=== PATIENT | female | born 1945 | race Caucasian/White ===

== ENCOUNTER 2020-04-27 05:41 | Outpatient (CLI) | payer MEDICARE, OTHER ==
--- NOTE | 2020-04-27 14:45 | RAD ---
EXAM: Two views chest PROVIDED CLINICAL HISTORY: Preoperative evaluation COMPARISON: None FINDINGS: Cardiac silhouette is the upper limits normal in size. Pulmonary vasculature is within normal limits. The lungs are clear. There is an area of increased density seen overlying the anterior aspects of the endplates of midthoracic vertebral bodies only seen on the lateral view which is thought to most likely represent endplate degenerative changes as opposed to a parenchymal abnormality. There are scattered osteophytes in the lumbar spine. IMPRESSION: No acute cardiopulmonary process.
[2020-04-27 16:09] LABS: #Eosinphils 0.1 thou/uL (0.0-0.7); #Lymphocytes 1.1 thou/uL (1.20-3.40); #Monocytes 0.7 thou/uL (0.11-0.59); #Neutrophils 9.1 thou/uL (1.40-6.50); %Basophils 0.4 % (0.0-1.0); %Eosinophils 1.1 % (0.0-10.0); %Lymphocytes 9.8 % (21.0-51.0); %Monocytes 6.4 % (0.0-10.0); %Neutrophils 82.4 % (42.0-75.0); Hemoglobin 13.8 g/dL (12.0-16.0); Mean Corpuscular HGB CONC 32.9 g/dL (32.0-36.0); Mean Corpuscular Hemoglobin 30.2 pg (27.0-31.0); Mean Corpuscular Volume 91.6 fL (78.0-98.0); Mean Platelet Volume 7.6 fL (7.4-10.4); Platelet Count 269 thou/uL (130-400); RBC Distribution Width 13.2 % (11.5-14.5); Red Blood Cell (RBC) Count 4.57 mill/uL (4.20-5.40); White Blood Cell (WBC) Count 11.1 thou/uL (4.8-10.8)
[2020-04-27 16:56] LABS: Anion Gap 15 mmol/L (10-20); BUN (Urea Nitrogen) 19 mg/dL (9.8-20.1); Calc. Creatinine Clearance 0 mL/min (70-130); Calcium 8.9 mg/dL (7.8-10.44); Carbon Dioxide 24 mmol/L (23-31); Chloride 102 mmol/L (98-107); Estimated GFR-MDRD 70; Glucose 119 mg/dL (83-110); Potassium 4.1 mmol/L (3.5-5.1); Sodium 137 mmol/L (136-145)
[2020-04-28 13:49] LABS: SARS-CoV-2 MS2 Positive; SARS-CoV-2 N Gene Negative; SARS-CoV-2 S Gene Negative; SARS-CoV-2 by NAA Not Detected (NotDetected); SARS-CoV-2 orf1ab Negative
--- NOTE | 2020-04-28 16:45 | EKG ---
Test Reason : PREOP Blood Pressure : / mmHG Vent. Rate : 079 BPM Atrial Rate : 079 BPM P-R Int : 188 ms QRS Dur : 142 ms QT Int : 408 ms P-R-T Axes : 063 006 101 degrees QTc Int : 467 ms Normal sinus rhythm Left bundle branch block Abnormal ECG No previous ECGs available Confirmed by DR. Mati RAMIREZ ([id number]) on 04/28/2020 4:44:47 PM Referred By: Rony GANN Confirmed By:DR. Mati RAMIREZ
== END 2020-04-27 05:42 | disposition home or self-care (01) ==
LOC: LABBT 05:41 → SCSRAD 05:42
PROVIDERS: ATTEND Specialist
DX: Z01.818 Encounter for other preprocedural examination (principal); Z20.828 Contact with and (suspected) exposure to other viral communicable diseases; K44.9 Diaphragmatic hernia without obstruction or gangrene; K21.9 Gastro-esophageal reflux disease without esophagitis
CPT/HCPCS: 71046; 80048; 85025; 87635; 93005; 93010; U0003

== ENCOUNTER 2020-05-02 05:42 | Day surgery (SDC) | payer MEDICARE ==
[2020-04-26 14:07] VITALS: BMI 32.9
[2020-05-02] MEDS ORDERED: Ketorolac Tromethamine 30 MG/ML VIAL ONE (06:03)
[2020-05-02] MEDS ORDERED: Acetaminophen 500 MG TAB ONE (06:03)
[2020-05-02] MEDS ORDERED: Bupivacaine 0.25% HCL 30 ML VIAL ONE (06:39)
[2020-05-02] MEDS ORDERED: Lidocaine 1% w/Epinephrine 1:100K 20 ML VIAL ONE (06:39)
[2020-05-02] MEDS ORDERED: Phenylephrine 10 MG/ML VIAL ONE (06:43)
[2020-05-02] MEDS ORDERED: Fentanyl 100 MCG/2 ML VIAL ONE ×2 (06:43→10:06)
[2020-05-02] MEDS ORDERED: Promethazine HCl 25 MG/ML VIAL IM PRN ×2 (09:15→09:34)
[2020-05-02] MEDS ORDERED: Promethazine HCl 25 MG/ML VIAL SLOW IVP PRN (09:15)
[2020-05-02] MEDS ORDERED: PACU-Morphine 4MG/ML VIAL SLOW IVP PRN (09:15)
[2020-05-02] MEDS ORDERED: Morphine 4 MG/ML VIAL SLOW IVP PRN (09:34)
[2020-05-02] MEDS ORDERED: Morphine 2 MG/ML VIAL SLOW IVP PRN (09:34)
[2020-05-02] MEDS ORDERED: hydrALAZINE 20 MG/ML VIAL SLOW IVP PRN (09:34)
[2020-05-02] MEDS ORDERED: Rocuronium Bromide 10 MG/ML (10ML VIAL) ONE (09:59)
[2020-05-02] MEDS ORDERED: Glycopyrrolate 0.2 MG/ML 5 ML SYRINGE ONE (09:59)
[2020-05-02] MEDS ORDERED: Lidocaine 1% PF 5 ML VIAL ONE (09:59)
[2020-05-02] MEDS ORDERED: Dexamethasone 20 MG/5 ML VIAL ONE (09:59)
[2020-05-02] MEDS ORDERED: Ondansetron PF 4 MG/2 ML Vial ONE (09:59)
[2020-05-02] MEDS ORDERED: PROPOFOL 200 MG/20 ML VIAL ONE (09:59)
[2020-05-02] MEDS ORDERED: EPHEDRINE 25 MG/5 ML SYRINGE ONE (09:59)
[2020-05-02] MEDS ORDERED: Succinylcholine Chloride 20 MG/ML 10 ml SYRINGE FS ONE (09:59)
[2020-05-02] MEDS: Famotidine 20 MG TAB PO SCH ×2 (11:41→21:32)
[2020-05-02] MEDS: D5 1/2 NS w/20 mEq KCL 1,000 ML IV SCH ×3 (11:47→21:34)
[2020-05-02] MEDS: Famotidine/PF 20 mg/2ml Vial SLOW IVP SCH ×2 (11:47→21:40)
[2020-05-02] MEDS: Ondansetron PF 4 MG/2 ML Vial IVP PRN ×2 (11:47→18:12)
[2020-05-02] MEDS ORDERED: Hydrocodone-Acetamin 15 ML UDCUP PO PRN (12:19)
[2020-05-02] MEDS: Ketorolac Tromethamine 30 MG/ML VIAL IVP SCH ×2 (12:21→17:32)
[2020-05-02] MEDS: Simethicone Chewable 80 MG TAB PO PRN ×2 (15:46→17:32)
[2020-05-02] MEDS ORDERED: Lorazepam 0.5 MG TAB PO PRN (17:03)
[2020-05-02] MEDS ORDERED: Enoxaparin Sodium 40 MG/0.4 ML SYRINGE SC SCH (21:00)
[2020-05-02] MEDS: Carvedilol 3.125 MG TAB PO SCH ×2 (21:32→21:39)
[2020-05-03] MEDS: Ketorolac Tromethamine 30 MG/ML VIAL IVP SCH ×2 (00:41→05:11)
[2020-05-03 05:19] LABS: #Lymphocytes 0.8 thou/uL (1.20-3.40); #Monocytes 0.8 thou/uL (0.11-0.59); #Neutrophils 5.8 thou/uL (1.40-6.50); %Basophils 0.1 % (0.0-1.0); %Eosinophils 0.1 % (0.0-10.0); %Lymphocytes 10.9 % (21.0-51.0); %Monocytes 10.4 % (0.0-10.0); %Neutrophils 78.5 % (42.0-75.0); Hemoglobin 12.9 g/dL (12.0-16.0); Mean Corpuscular HGB CONC 31.9 g/dL (32.0-36.0); Mean Corpuscular Hemoglobin 29.8 pg (27.0-31.0); Mean Corpuscular Volume 93.4 fL (78.0-98.0); Mean Platelet Volume 7.2 fL (7.4-10.4); Platelet Count 204 thou/uL (130-400); RBC Distribution Width 13.3 % (11.5-14.5); Red Blood Cell (RBC) Count 4.32 mill/uL (4.20-5.40); White Blood Cell (WBC) Count 7.4 thou/uL (4.8-10.8)
[2020-05-03 05:31] LABS: Anion Gap 10 mmol/L (10-20); BUN (Urea Nitrogen) 12 mg/dL (9.8-20.1); Calc. Creatinine Clearance 91 mL/min (70-130); Calcium 8.6 mg/dL (7.8-10.44); Carbon Dioxide 24 mmol/L (23-31); Chloride 107 mmol/L (98-107); Estimated GFR-MDRD 82; Glucose 129 mg/dL (83-110); Potassium 4.2 mmol/L (3.5-5.1); Sodium 137 mmol/L (136-145)
--- NOTE | 2020-05-03 07:43 | PDOC.GSPN ---
Surgery Progress Note: Subj - Subjective Patient reports: feels better, pain well controlled (Pt is POD1 for Lap Randi Fundoplication. Pt reports she is doing better, but reported mild pain in her shoulder. Pt stated this pain was rated as a 3 out of 10 upon deep inspirationand described the pain as stabbing. Stated the pain decreased with walking. Pt had a short period of suprapubic abdominal pain that was relieved with voiding. Patient stated the had nausea and dry hevaing pots-op, but discomfort subsided in early afternoon yesterday. Patient took "Gas-X" which further relieved discomfort. Discussed use of incentive spirometry with patient. Pt stated she had her appetite back and was overall doing well.), tolerating liquids well, no bowel movement, no flatus Surgery Progress Note: Obj - Vital signs Vital signs: Vital Signs - Most Recent Temp Pulse Resp BP Pulse Ox 97.7 F 68 18 163/96 H 95 05/03/20 04:00 05/03/20 04:00 05/03/20 04:00 05/03/20 04:00 05/03/20 04:00 - Physical Exam General: no distress, well nourished, obese Cardiovascular: regular rate and rhythm Respiratory: clear to auscultation, breath sounds present Abdomen: soft, positive bowel sounds, other (brusing present around port sites) Surgery Progress Note: Results - Labs Result Diagrams: 05/03/20 04:58 05/03/20 04:58 Lab results: Laboratory Results - last 24 hr 05/03/20 05/03/20 04:58 04:58 WBC 7.4 RBC 4.32 Hgb 12.9 Hct 40.4 MCV 93.4 MCH 29.8 MCHC 31.9 L RDW 13.3 Plt Count 204 MPV 7.2 L Neutrophils % 78.5 H Lymphocytes % 10.9 L Monocytes % 10.4 H Eosinophils % 0.1 Basophils % 0.1 Neutrophils # 5.8 Lymphocytes # 0.8 L Monocytes # 0.8 H Eosinophils # 0.0 Basophils # 0.0 Sodium 137 Potassium 4.2 Chloride 107 Carbon Dioxide 24 Anion Gap 10 BUN 12 Creatinine 0.70 Estimated GFR (MDRD) 82 Glucose 129 H Calcium 8.6 Surgery Progress Note: A/P - Problem (1) Status post Randi fundoplication Code(s): Z98.890 - OTHER SPECIFIED POSTPROCEDURAL STATES Status: Acute (2) Cardiomyopathy Code(s): I42.9 - CARDIOMYOPATHY, UNSPECIFIED Status: Chronic Qualifiers: 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 Pt is POD1 for Lap Randi Fundoplication: continue to monitor port and incision sites. Continue DVT prophylaxis with ambulation, SCD, and Enoxaparin. monitor patient's pain level. Follow up with patient to see how she is recovering and tolerating food. 2. continue patient on home meds for cardiomyopathy: carvedilol 3.Patient has history of HTN: monitor patient's BP. Continue Pt on home meds. Overall, patient is recovering well and can be discharged. MD note. As above, she is tolerating her diet nicely, has minimal discomfort, and is certainly stable for discharge. She is to resume all of her home medications and stay on a liquid/soft diet for the next 2 weeks. She is to be discharged this morning. LUIS ENRIQUE
--- NOTE | 2020-05-03 07:44 | OP ---
DATE OF PROCEDURE: 05/02/2020 PREOPERATIVE DIAGNOSIS: Hiatal hernia with gastroesophageal reflux. POSTOPERATIVE DIAGNOSIS: Hiatal hernia with gastroesophageal reflux. PROCEDURE PERFORMED: Laparoscopic Randi fundoplication. ANESTHESIA: General endotracheal. INDICATIONS: The patient is a 74-year-old white female. She presents with a long history of ongoing symptoms related to her hiatal hernia and gastroesophageal reflux. She has undergone preoperative evaluation at the time for laparoscopic Randi fundoplication. DESCRIPTION OF OPERATION: Informed consent was obtained. The patient was taken to the operating room, where general endotracheal anesthesia was obtained with the patient in the supine position. She was then placed split leg on the same table. The abdomen was prepped with ChloraPrep and draped in sterile fashion. Local anesthetic was infiltrated using a mixture of 1% lidocaine with epinephrine and 0.25% Marcaine. A 5 mm supraumbilical incision was created through which a Veress needle was passed into the peritoneal cavity and pneumoperitoneum established using carbon dioxide up to pressure of 15 mmHg. A 5 mm trocar port was passed through the same incision. Laparoscopic camera was passed through this port. Under direct vision, four additional ports were placed including bilateral subcostal 5 mm ports, an 11 mm left epigastric port, and a 5 mm right epigastric port. The triangle retractor was used to elevate the left lobe of the liver and held in place with Joaquim's arm. The patient had an obvious hiatal hernia that was estimated at about 4 cm in diameter. The upper portion of her stomach including the entire fundus was herniated into the mediastinum. Contents were easily reducible. Dissection was begun on the right side. The pars flaccida was incised and dissection carried down to the right arnie. This was carefully cleared by giving the access to the retroesophageal plane. The peritoneum was taken down anteriorly across the hiatus as well. Attention was then turned to the left side. The upper one-fourth of the greater curvature of the stomach was cleared of its fatty and vascular connections using the LigaSure device. Spleen was kept free from harm. The left arnie was carefully identified and dissected as well. The peritoneal dissection around the hiatus was completed and the dissection was carried into the mediastinum, carefully mobilizing around the esophagus in order to maximize mobility. Hemostasis was meticulous at all times. Attention was returned to the patient's right side and the retroesophageal window was completed. The vagus nerve was identified and protected. [place] drain was utilized to elevate the esophagus. A #50-[place] bougie was passed under direct vision through the esophagus into the stomach and used to calibrate. The hiatus was closed posteriorly with 2 interrupted sutures of 0 Bralon, placing Cordova pledgets on either side of the hiatus with each suture. The opening appeared to be appropriately narrowed. Attention was then turned to the wrap. The wrap was found to be inadequately mobile and therefore took down another inter 2 of the greater curvature connections, which afforded appropriate laxity. I was able to grasp the fundus and rotated posteriorly through the retroesophageal window and construct a floppy wrap around the calibrated distal esophagus. The wrap was completed using 3 interrupted sutures of 0 Bralon between the two sides of the stomach. The upper and lower sutures incorporated bites of the esophagus as well. The sutures were all placed 1 cm apart. Finally, I placed 2 collar sutures between the wrap and the hiatus at about the 130 and 1030 radians. The wrap appeared to be appropriately positioned, still appeared to be appropriately lax. There did appear to be a little too much laxity at the hiatus, and I therefore decided to place one final minimal suture of 0 Bralon with felt pledgets anteriorly to obtain a little more plication. The snake retractor was removed. The fascial defect at the 11 mm port site was closed with 0 Vicryl suture using a GraNee needle. All ports and instruments were removed under direct vision. Pneumoperitoneum was carefully evacuated. A 0.25% Marcaine with epinephrine was infiltrated at each port site. Skin edge was approximated with 4-0 Monocryl subcuticular suture. Dermabond was placed externally. There were no complications. The patient tolerated the procedure well, taken to recovery room in stable condition. Job ID: [id number]
[2020-05-03 08:24] VITALS: BP 174/95; TEMP 97.5
[2020-05-03] MEDS: Carvedilol 3.125 MG TAB PO SCH (08:50)
[2020-05-03] MEDS: Famotidine 20 MG TAB PO SCH (08:50)
[2020-05-03] MEDS ORDERED: Aspirin 81 mg Enteric Coated Tablet PO SCH (09:00)
[2020-05-03] MEDS ORDERED: Valsartan 80 MG TAB PO SCH (09:00)
== END 2020-05-03 10:10 | disposition home or self-care (01) ==
LOC: SDC 05:42 → SURG B 09:34 → UNDOADMIN 12:01 → UNDODISIN 05-03 10:10 → SDC 05-03 10:10
PROVIDERS: ATTEND Specialist
PROC: 0DV44ZZ Restriction of Esophagogastric Junction, Percutaneous Endoscopic Approach (ICD-10-PCS; principal; 2020-05-02)
DX: K44.9 Diaphragmatic hernia without obstruction or gangrene (principal); K21.9 Gastro-esophageal reflux disease without esophagitis; E78.2 Mixed hyperlipidemia; I11.0 Hypertensive heart disease with heart failure; I50.9 Heart failure, unspecified; I42.9 Cardiomyopathy, unspecified; I35.0 Nonrheumatic aortic (valve) stenosis; F41.9 Anxiety disorder, unspecified; B33.24 Viral cardiomyopathy; Z79.82 Long term (current) use of aspirin; Z79.899 Other long term (current) drug therapy; Z88.2 Allergy status to sulfonamides
CPT/HCPCS: 36415; 80048; 85025; 93005; 93010; J0690; J1100; J1650; J1885; J2370; J2405; J2704; J3010; J3480; S0020; S0028